=== PATIENT | male | born 1985 | race Caucasian/White ===

== ENCOUNTER 2017-01-02 07:09 | Emergency (ER) | payer BC ==
[2017-01-02 09:59] LABS: HEMOGLOBIN 17.2 gm/dl (14.0-17.5); RED BLOOD COUNT 5.38 M/UL (4.20-5.50); WHITE BLOOD COUNT 8.3 K/UL (4.5-11.0)
[2017-01-02 10:10] LABS: BUN/CREATININE RATIO 9 (0-10)
== END 2017-01-02 23:00 | disposition home or self-care (01) ==
LOC: ER1 07:09
PROVIDERS: Physician Assistant
DX: R11.2 Nausea with vomiting, unspecified (principal); R19.7 Diarrhea, unspecified; R05 Cough; F17.200 Nicotine dependence, unspecified, uncomplicated
CPT/HCPCS: 36415; 71020; 80053; 81001; 85025; 96374; 99284; J2405

== ENCOUNTER 2017-03-23 19:38 | Emergency (ER) | payer BC | END 2017-03-23 20:52 | disposition home or self-care (01) | LOC: ER1 19:38 | DX: H92.03 Otalgia, bilateral (principal); F17.210 Nicotine dependence, cigarettes, uncomplicated | CPT/HCPCS: 99282 ==